=== PATIENT | female | born 1925 | race Hispanic/Latino ===

== ENCOUNTER 2016-04-21 09:48 | Day surgery (SDC) | payer MEDICARE, OTHER ==
[2016-04-20 14:34] LABS: Hematocrit 24.1 % (30.3-42.9); Hemoglobin 7.3 gm/dl (10.1-14.3)
[2016-04-21] MEDS ORDERED: TYLENOL PO ONE (11:00)
[2016-04-21] MEDS ORDERED: NACL 0.9% 250ML 250 ML IV ONE (11:00)
[2016-04-21] MEDS ORDERED: BENADRYL PO ONE (11:00)
[2016-04-21] MEDS ORDERED: LASIX IV SCH (11:00)
[2016-04-21 14:23] VITALS: BP 125/50
== END 2016-04-21 14:45 | disposition home or self-care (01) ==
LOC: OPU 09:48
PROVIDERS: ATTEND Internal Medicine Hematology & Oncology
DX: D64.9 Anemia, unspecified (principal)
CPT/HCPCS: 36415; 36430; 85014; 85018; 86850; 86900; 86901; 86920; J7050; P9016